=== PATIENT | male | born 1995 | race Caucasian/White ===

== ENCOUNTER 2023-12-23 10:54 | Emergency (ER) | payer OTHER ==
[2023-12-23 11:42] VITALS: RESP 18
--- NOTE | 2023-12-23 11:42 | ED ---
General Adult HPI - General Chief complaint: Extremity Injury, Upper Stated complaint: Left elbow injury Time Seen by Provider: 12/23/23 11:30 Source: patient, RN notes reviewed Mode of arrival: ambulatory - History of Present Illness Initial comments: 28-year-old male presents to the emergency department for evaluation of left arm injury. Patient states that yesterday he was skateboarding when he fell landing on his left arm. He states that he attempted to sleep last night in hopes that the pain would improve. He notes that today, the pain persists. He denies any other injury. Denies head injury, blood thinners. - Related Data Allergies Allergy/AdvReac Type Severity Reaction Status Date / Time No Known Allergies Allergy Verified 12/23/23 11:40 Review of Systems ROS Statement: Those systems with pertinent positive or pertinent negative responses have been documented in the HPI. ROS Other: All systems not noted in ROS Statement are negative. Past Medical History History of Any Multi-Drug Resistant Organisms: None Reported Past Surgical History: Appendectomy Past Psychological History: Bipolar, PTSD Smoking Status: Current every day smoker Past Alcohol Use History: Occasional Past Drug Use History: Marijuana General Exam Limitations: no limitations General appearance: alert, in no apparent distress Head exam: Present: atraumatic, normocephalic, normal inspection Eye exam: Present: normal appearance, PERRL, EOMI. Absent: scleral icterus, conjunctival injection, periorbital swelling Respiratory exam: Present: normal lung sounds bilaterally. Absent: respiratory distress, wheezes, rales, rhonchi, stridor Cardiovascular Exam: Present: regular rate, normal rhythm, normal heart sounds. Absent: systolic murmur, diastolic murmur, rubs, gallop, clicks Extremities exam: Present: full ROM, tenderness (TTP over left humerus ), normal capillary refill, other (radial pulses 2+). Absent: pedal edema, joint swelling, calf tenderness Neurological exam: Present: alert, oriented X3 Psychiatric exam: Present: normal affect, normal mood Skin exam: Present: warm, dry, intact, normal color. Absent: rash Course Vital Signs 12/23/23 12/23/23 11:11 12:34 Temperature 98.4 F 98.2 F Pulse Rate 101 H 96 Respiratory 18 18 Rate Blood Pressure 137/83 132/78 O2 Sat by Pulse 98 97 Oximetry Medical Decision Making - Medical Decision Making Was pt. sent in by a medical professional or institution (YANI Caceres, HOME ECONOMICS EXPERT, urgent care, hospital, or intermediate...) When possible be specific @ -No Did you speak to anyone other than the patient for history (EMS, parent, family, police, friend...)? What history was obtained from this source @ -No Did you review nursing and triage notes (agree or disagree)? Why? @ -I reviewed and agree with nursing and triage notes Were old charts reviewed (outside hosp., previous admission, EMS record, old EKG, old radiological studies, urgent care reports/EKG's, intermediate records)? Report findings @ -No old charts were reviewed Differential Diagnosis (chest pain, altered mental status, abdominal pain women, abdominal pain men, vaginal bleeding, weakness, fever, dyspnea, syncope, headache, dizziness, GI bleed, back pain, seizure, CVA, palpatations, mental health, musculoskeletal)? @ -Differential Musculoskeletal Muscular strain, contusion, ligament sprain, fracture, arthritis, septic arthritis, bursitis, cellulitis, muscle spasm, nerve compression, DVT, arterial occlusion, herpes zoster, electrolyte abnormality, tumor.... This is not meant to be in all inclusive list EKG interpreted by me (3pts min.). @ -none X-rays interpreted by me (1pt min.). @ -XR of the left humerus shows no evidence of acute fracture CT interpreted by me (1pt min.). @ -None done U/S interpreted by me (1pt. min.). @ -None done What testing was considered but not performed or refused? (CT, X-rays, U/S, labs)? Why? @ -None What meds were considered but not given or refused? Why? @ -None Did you discuss the management of the patient with other professionals (professionals i.e. YANI Caceres, HOME ECONOMICS EXPERT, lab, RT, psych nurse, social worker assistant, cement mixer driver, teacher, hospital chief executive officer, case packer and sealer)? Give summary @ -No Was smoking cessation discussed for >3mins.? @ -No Was critical care preformed (if so, how long)? @ -No Were there social determinants of health that impacted care today? How? (Homelessness, low income, unemployed, alcoholism, drug addiction, transportation, low edu. Level, literacy, decrease access to med. care, penitentiary, rehab)? @ -No Was there de-escalation of care discussed even if they declined (Discuss DNR or withdrawal of care, Hospice)? DNR status @ -No What co-morbidities impacted this encounter? (DM, HTN, Smoking, COPD, CAD, Cancer, CVA, ARF, Chemo, Hep., AIDS, mental health diagnosis, sleep apnea, morbid obesity)? @ -None Was patient admitted / discharged? Hospital course, mention meds given and route, prescriptions, significant lab abnormalities, going to OR and other pertinent info. @ -Discharged. PAtient presented to the emergency department for evaluation of left upper arm pain following a fall. He denies any other injury. XR obtained w [facility] shows no evidence of acute fracture. Patient provided dose of toradol in ED. Paolo wrap provided. Advised to utilize tylenol and motrin for pain. Discussed RICE. Patient understanding and agreeable with plan. Patient stable at time of discharge. Case discussed with Dr. Au Undiagnosed new problem with uncertain prognosis? @ -No Drug Therapy requiring intensive monitoring for toxicity (Heparin, Nitro, Insulin, Cardizem)? @ -No Were any procedures done? @ -No Diagnosis/symptom? @ -Arm contusion Acute, or Chronic, or Acute on Chronic? @ -acute Uncomplicated (without systemic symptoms) or Complicated (systemic symptoms)? @ -uncomplicated Side effects of treatment? @ -No Exacerbation, Progression, or Severe Exacerbation? @ -No Poses a threat to life or bodily function? How? (Chest pain, [place], [place], pneumonia, PE, COPD, DKA, ARF, appy, cholecystitis, CVA, Diverticulitis, Homicidal, Suicidal, threat to staff... and all critical care pts) @ -No Disposition Clinical Impression: Arm contusion Disposition: HOME SELF-CARE Condition: Stable Instructions (If sedation given, give patient instructions): Elbow Sprain (ED) Additional Instructions: Alternate Tylenol and Motrin for pain. Rest, ice, elevate the arm. Follow up with your primary care provider. Return to the emergency department for new or worsening symptoms. Is patient prescribed a controlled substance at d/c from ED?: No Referrals: None,Stated [Primary Care Provider] - 1-2 days
[2023-12-23] MEDS: KETOROLAC 15 MG/ML 1 ML VIAL IM STA (11:45)
--- NOTE | 2023-12-23 11:53 | XR ---
EXAMINATION TYPE: XR humerus LT DATE OF EXAM: 12/23/2023 COMPARISON: None HISTORY: Pain, fall TECHNIQUE: 2 view left humerus FINDINGS: No acute fracture or dislocation evident. Joint spaces appear preserved. Follow up exams can be performed 7-10 days from acute trauma for continued pain. IMPRESSION: 1. No acute osseous abnormality left humerus
[2023-12-23 13:21] VITALS: BP 132/78; PULSE 96; TEMP 98.2
== END 2023-12-23 12:36 | disposition home or self-care (01) ==
LOC: EC 10:54
DX: S40.022A Contusion of left upper arm, initial encounter (principal); F17.200 Nicotine dependence, unspecified, uncomplicated; V00.131A Fall from skateboard, initial encounter; Y93.51 Activity, roller skating (inline) and skateboarding
CPT/HCPCS: 73060; 99283; 96372; J1885